=== PATIENT | male | born 1965 | race Two or more races ===

== ENCOUNTER 2018-03-03 12:58 | Emergency (ER) | payer OTHER ==
[~2018-03-03] VITALS: Ht 177.8 cm; Wt 83.9 kg
[2018-03-03 13:08] VITALS: BP 138/88
== END 2018-03-03 15:25 | disposition home or self-care (01) ==
LOC: ER 12:58
DX: S60.051A Contusion of right little finger without damage to nail, initial encounter (principal); E78.5 Hyperlipidemia, unspecified; W21.89XA Striking against or struck by other sports equipment, initial encounter; Y93.39 Activity, other involving climbing, rappelling and jumping off; Y92.39 Other specified sports and athletic area as the place of occurrence of the external cause; Y99.8 Other external cause status
CPT/HCPCS: 73140